=== PATIENT | male | born 1990 | race American Indian/Alaskan Native ===

== ENCOUNTER 2016-12-23 03:38 | Emergency (ER) | payer OTHER ==
[2016-12-23 03:42] VITALS: BP 133/83; PULSE 78; RESP 18; TEMP 98.5; O2SAT 98
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
== END 2016-12-23 05:58 | disposition home or self-care (01) ==
LOC: H.ER 03:38
DX: T14.90 Injury, unspecified (principal); V49.40XA Driver injured in collision with unspecified motor vehicles in traffic accident, initial encounter